=== PATIENT | female | born 1975 | race Caucasian/White ===

== ENCOUNTER 2025-02-27 14:35 | Emergency (ER) | payer MEDICAID ==
[~2025-02-27] VITALS: Ht 165.1 cm; Wt 69.0 kg
[2025-02-27 14:43] VITALS: O2SAT 99
[2025-02-27 16:01] LABS: BASOPHILS % 0.3 % (0.0-2.0); EOSINOPHILS % 0.3 % (0.0-5.0); HEMATOCRIT. 37.2 % (36.0-48.0); HEMOGLOBIN. 12.4 g/dL (12.0-16.0); LYMPHOCYTES % 20.3 % (20.0-50.0); MEAN PLATELET VOLUME 8.8 fl (7.4-10.4); MONOCYTES % 6.9 % (2.0-8.0); NEUTROPHILS % 72.2 % (40.0-76.0); PLATELET 226 x1000/uL (130-400); RED BLOOD CELL COUNT 4.40 mill/uL (4.2-5.4); RED CELL DISTRIBUTION WIDTH 14.6 % (11.6-14.6)
[2025-02-27 16:11] LABS: INR 1.0
[2025-02-27 16:14] LABS: CREATININE 1.2 mg/dL (0.6-1.0)
[2025-02-27 16:15] LABS: ETHANOL BLOOD < 10 mg/dL (<10); UREA NITROGEN BLOOD 11 mg/dL (9-23)
[2025-02-27 16:16] LABS: ASPARTATE AMINOTRANSFERASE 61 IU/L (<34); BILIRUBIN DIRECT 0.4 mg/dL (<=3.0); TROPONIN I HIGH SENSITIVITY < 4 ng/L (3.0-34)
[2025-02-27 16:17] LABS: BILIRUBIN TOTAL 1.0 mg/dL (0.1-1.0); PROTEIN TOTAL 7.3 g/dL (6.0-8.3)
[2025-02-27 16:22] LABS: HCG SCREEN NEGATIVE
[2025-02-27 16:25] LABS: CLARITY URINE TURBID (CLEAR); COLOR URINE DARK YELLOW (YELLOW); GLUCOSE URINE NEGATIVE (NEGATIVE); KETONES URINE TRACE (NEGATIVE); LEUKOCYTE ESTERASE URINE 3+ (NEGATIVE); NITRITE URINE NEGATIVE (NEGATIVE); OCCULT BLOOD URINE 3+ (NEGATIVE); PH URINE 5.0 (4.5-8.0); PROTEIN URINE 3+ (NEGATIVE); SPECIFIC GRAVITY URINE 1.026 (1.005-1.030); UROBILINOGEN URINE 1.0 E.U./dL (0.2-1.0)
[2025-02-27 16:34] LABS: *AMPHETAMINES SCREEN URINE NEGATIVE (NEGATIVE); *BARBITURATES SCREEN URINE NEGATIVE (NEGATIVE); *BENZODIAZEPINES SCREEN URINE NEGATIVE (NEGATIVE); *COCAINE SCREEN URINE NEGATIVE (NEGATIVE); CANNABINOID URINE SCREEN NEGATIVE (NEGATIVE); ECSTASY MDMA SCREEN URINE NEGATIVE (NEGATIVE); METHADONE URINE SCREEN NEGATIVE (NEGATIVE); OPIATES URINE SCREEN NEGATIVE (NEGATIVE); PHENCYCLIDINE URINE SCREEN NEGATIVE (NEGATIVE)
[2025-02-27 16:50] LABS: BACTERIA URINE 3+; RBC URINE 15-25 /hpf (0-2); SQUAMOUS EPITHELIAL CELL URINE 1+ /lpf (RARE/1+); WBC URINE 15-25 /hpf (0-2)
[2025-02-27] MEDS: POTASSIUM CHLORIDE 20MEQ TABLET SR PO ONE (16:55)
[2025-02-27] MEDS: ACETAMINOPHEN 325MG TABLET PO ONE (16:56)
[2025-02-27] MEDS ORDERED: CEPH500C2 MT (17:31)
[2025-02-27] MEDS ORDERED: CEFP200T13 MT (18:51)
[2025-02-27 19:03] VITALS: BP 97/67; PULSE 82; RESP 16; TEMP 37; O2SAT 100
== END 2025-02-27 19:04 | disposition home or self-care (01) ==
LOC: ER 14:35
DX: R50.9 Fever, unspecified (principal); R10.30 Lower abdominal pain, unspecified; Z98.890 Other specified postprocedural states; Z20.822 Contact with and (suspected) exposure to COVID-19; Z79.899 Other long term (current) drug therapy
CPT/HCPCS: 74176; 80048; 80076; 80305; 80320; 81003; 84484; 84703; 85025; 87077; 87186; 87426; 99284; G0480